=== PATIENT | male | born 1935 | race Caucasian/White ===

== ENCOUNTER 2023-11-08 07:56 | Outpatient (CLI) | payer MEDICARE ==
[2023-11-08] MEDS ORDERED: Magnevist 469MG/ML 20 ML VIAL ONE ×2 (09:27)
== END 2023-11-08 07:57 | disposition home or self-care (01) ==
LOC: CSHCT 07:56
PROVIDERS: ATTEND Otolaryngology Plastic Surgery within the Head & Neck
DX: J34.89 Other specified disorders of nose and nasal sinuses (principal); J33.0 Polyp of nasal cavity; M85.88 Other specified disorders of bone density and structure, other site; J34.9 Unspecified disorder of nose and nasal sinuses
CPT/HCPCS: 70543; 70553; 76377; 82565; A9579

== ENCOUNTER 2024-01-11 10:47 | Outpatient (CLI) | payer MEDICARE ==
[2024-01-11 11:56] LABS: Hematocrit 46.5 % (38.8-50.0)
[2024-01-11 12:33] LABS: Anion Gap 15 mmol/L (10-20); BUN (Urea Nitrogen) 16 mg/dL (8.4-25.7); Calc. Creatinine Clearance 0 mL/min (70-130); Calcium 8.4 mg/dL (7.8-10.44); Carbon Dioxide 21 mmol/L (23-31); Chloride 107 mmol/L (98-107); Estimated GFR 88; Glucose 124 mg/dL (83-110); Sodium 138 mmol/L (136-145)
[2024-01-11 12:39] LABS: Potassium 4.8 mmol/L (3.5-5.1)
== END 2024-01-11 10:48 | disposition home or self-care (01) ==
LOC: CSHLAB 10:47
PROVIDERS: ATTEND Otolaryngology Plastic Surgery within the Head & Neck
DX: Z01.818 Encounter for other preprocedural examination (principal); J34.89 Other specified disorders of nose and nasal sinuses; J33.9 Nasal polyp, unspecified
CPT/HCPCS: 80048; 85014; 85018; 93005; 93010